=== PATIENT | male | born 1975 | race Caucasian/White ===

== ENCOUNTER 2024-11-05 06:38 | Outpatient (CLI) | payer BC, SELFPAY | END 2024-11-05 06:39 | disposition home or self-care (01) | LOC: INJ CL 06:42 | PROVIDERS: PCP Family Medicine; Visit Provider Family Medicine | DX: M54.16 Radiculopathy, lumbar region (principal); M51.369 Other intervertebral disc degeneration, lumbar region without mention of lumbar back pain or lower extremity pain | CPT/HCPCS: 62323; J0702; Q9966 ==

== ENCOUNTER 2024-12-24 06:33 | Outpatient (CLI) | payer BC, SELFPAY | END 2024-12-24 06:34 | disposition home or self-care (01) | LOC: INJ CL 06:34 | PROVIDERS: PCP Family Medicine; Visit Provider Family Medicine | DX: M54.16 Radiculopathy, lumbar region (principal); M51.369 Other intervertebral disc degeneration, lumbar region without mention of lumbar back pain or lower extremity pain | CPT/HCPCS: 64483; 64484; Q9966 ==